=== PATIENT | female | born 1975 | race Caucasian/White ===

== ENCOUNTER 2019-04-03 18:28 | Emergency (ER) | payer OTHER ==
[~2019-04-03] VITALS: Ht 170.2 cm; Wt 93.7 kg
[2019-04-03 18:59] LABS: BASOPHILS # (AUTO) 0.05 x10^3/uL (0-0.1); BASOPHILS % (AUTO) 1 % (0-1); EOSINOPHILS % (AUTO) 1 % (1-7); LYMPHOCYTES # (AUTO) 2.31 x10^3/uL (1-3.4); LYMPHOCYTES % (AUTO) 28 % (22-44); MD NO; MEAN CORPUSCULAR HEMOGLOBIN 29.1 pg (27.0-34.8); MEAN CORPUSCULAR HGB CONC 33.8 g/dL (32.4-35.8); MEAN PLATELET VOLUME 8.1 fL (7.4-10.4); MONOCYTES # (AUTO) 0.41 x10^3/uL (0.2-0.8); MONOCYTES % (AUTO) 5 % (2-9); NEUTROPHILS # (AUTO) 5.45 x10^3/uL (1.8-6.8); NEUTROPHILS % (AUTO) 65 % (42-75); PLATELET COUNT 342 x10^3/uL (130-400); RED BLOOD COUNT 4.91 x10^6/uL (3.82-5.3); RED CELL DISTRIBUTION WIDTH 13.6 % (9.6-15.2)
[2019-04-03 19:12] LABS: ANION GAP 8 mmol/L (5-15); CHLORIDE 105 mmol/L (98-107)
[2019-04-03 19:17] LABS: CREATININE 0.97 mg/dL (0.55-1.02)
[2019-04-03] MEDS ORDERED: ONDANSETRON ODT 4 MG PO ONE (20:30)
[2019-04-03] MEDS ORDERED: ONDANSETRON ODT 4 MG ONE (20:45)
[2019-04-03 21:09] VITALS: BP 126/79
== END 2019-04-03 21:11 | disposition home or self-care (01) ==
LOC: ED 20:57
DX: R55 Syncope and collapse (principal); H53.9 Unspecified visual disturbance; R53.1 Weakness; R11.10 Vomiting, unspecified; K21.9 Gastro-esophageal reflux disease without esophagitis
CPT/HCPCS: 36415; 80048; 84703; 85025; 93005; 99284; Q0162

== ENCOUNTER 2020-08-14 09:28 | Emergency (ER) | payer OTHER ==
[~2020-08-14] VITALS: Ht 167.6 cm; Wt 94.9 kg
--- NOTE | 2020-08-14 09:47 | NUR ---
PT CHANGED INTO GOWN, MONITORS IN PLACE. CALL LIGHT WITHIN REACH. ANITAN
--- NOTE | 2020-08-14 09:51 | NUR ---
pa at bs
--- NOTE | 2020-08-14 10:12 | NUR ---
XRAY AT BS
[2020-08-14] MEDS ORDERED: NORE-86 PO (10:17)
[2020-08-14] MEDS ORDERED: VENL37.52 PO (10:17)
[2020-08-14] MEDS ORDERED: OMEP20TA62 PO (10:17)
[2020-08-14] MEDS ORDERED: BENZ100C PO (10:17)
[2020-08-14 10:44] LABS: BASOPHILS % (AUTO) 0 % (0-1); EOSINOPHILS % (AUTO) 0 % (1-7); LYMPHOCYTES % (AUTO) 12 % (22-44); MEAN CORPUSCULAR HEMOGLOBIN 29.1 pg (27.0-34.8); MEAN CORPUSCULAR HGB CONC 33.8 g/dL (32.4-35.8); MEAN PLATELET VOLUME 8.1 fL (7.4-10.4); MONOCYTES % (AUTO) 4 % (2-9); NEUTROPHILS % (AUTO) 84 % (42-75); PLATELET COUNT 269 x10^3/uL (130-400); RED BLOOD COUNT 4.46 x10^6/uL (3.82-5.3); RED CELL DISTRIBUTION WIDTH 13.4 % (9.6-15.2)
[2020-08-14 10:49] LABS: MD NO
[2020-08-14 10:53] LABS: ALANINE AMINOTRANSFERASE 18 U/L (12-78); ALBUMIN 3.5 g/dL (3.4-5.0); ANION GAP 5 mmol/L (5-15); CALCIUM 8.8 mg/dL (8.5-10.1); CHLORIDE 106 mmol/L (98-107); CREATININE 0.92 mg/dL (0.55-1.02)
[2020-08-14 10:57] LABS: ALKALINE PHOSPHATASE 62 U/L (45-117); BILIRUBIN,TOTAL 0.8 mg/dL (0.2-1.0); TOTAL PROTEIN 7.4 g/dL (6.4-8.2); TROPONIN I < 0.015 ng/mL (0.000-0.045)
--- NOTE | 2020-08-14 11:12 | NUR ---
PT LAYING ON [place]. CALL LIGHT WITHIN REACH. NO NEEDS AT THIS TIME. CHART UP FOR RECHECK
[2020-08-14 12:24] VITALS: BP 132/85
--- NOTE | 2020-08-14 12:25 | NUR ---
PA AT BS. PT LAYING ON [place]. MOTHER AT BS. CALL LIGHT WITHIN REACH. NO NEEDS AT THIS TIME
--- NOTE | 2020-08-14 12:45 | NUR ---
Patient given discharge instructions and they have confirmed that they understand the instructions. Patient ambulatory with steady gait.
== END 2020-08-14 13:00 | disposition home or self-care (01) ==
LOC: ED 10:24
DX: R07.2 Precordial pain (principal); R06.00 Dyspnea, unspecified; K21.9 Gastro-esophageal reflux disease without esophagitis
CPT/HCPCS: 36415; 71045; 80053; 84484; 84703; 85025; 85379; 93005; 99285

== ENCOUNTER 2020-09-20 12:04 | Emergency (ER) | payer OTHER ==
[~2020-09-20] VITALS: Ht 167.6 cm; Wt 91.4 kg
[~2020-09-20 12:04] MED LIST: BENZ100C PO; NORE-86 PO; OMEP20TA62 PO; VENL37.52 PO
--- NOTE | 2020-09-20 12:12 | NUR ---
PATIENT ARRIVES WITH NAUSEA THAT BEGAN YESTERDAY MORNING. NO ABDOMINAL PAIN. ONLY HAD A FEW CRACKERS IN PAST DAY.
[2020-09-20] MEDS ORDERED: SODIUM CHLORIDE 0.9% 1,000ML IVBOLUS ONE (12:30)
[2020-09-20] MEDS ORDERED: METOCLOPRAMIDE 5 MG/ML, 2ML IVPush ONE (12:30)
[2020-09-20] MEDS ORDERED: SODIUM CHLORIDE FLUSH 10ML SYR IVF ONE (12:30)
--- NOTE | 2020-09-20 12:53 | NUR ---
PATIENT URINE CLEAN CATCH SENT, BLOOD WORK WELL. PATIENT IN BED WITH DAD BEDSIDE RAILS UP ON MONITOR
[2020-09-20 12:59] LABS: ALANINE AMINOTRANSFERASE 22 U/L (12-78); ALBUMIN 3.6 g/dL (3.4-5.0); ANION GAP 9 mmol/L (5-15); BASOPHILS % (AUTO) 1 % (0-1); CALCIUM 9.4 mg/dL (8.5-10.1); CHLORIDE 106 mmol/L (98-107); CREATININE 1.02 mg/dL (0.55-1.02); EOSINOPHILS % (AUTO) 0 % (1-7); LYMPHOCYTES % (AUTO) 13 % (22-44); MEAN CORPUSCULAR HEMOGLOBIN 29.2 pg (27.0-34.8); MEAN CORPUSCULAR HGB CONC 34.3 g/dL (32.4-35.8); MEAN PLATELET VOLUME 8.5 fL (7.4-10.4); MONOCYTES % (AUTO) 3 % (2-9); NEUTROPHILS % (AUTO) 84 % (42-75); PLATELET COUNT 309 x10^3/uL (130-400); RED BLOOD COUNT 5.02 x10^6/uL (3.82-5.3); RED CELL DISTRIBUTION WIDTH 13.7 % (9.6-15.2)
[2020-09-20 13:04] LABS: ALKALINE PHOSPHATASE 71 U/L (45-117); BILIRUBIN,TOTAL 0.9 mg/dL (0.2-1.0); TOTAL PROTEIN 8.4 g/dL (6.4-8.2)
[2020-09-20] MEDS ORDERED: METOCLOPRAMIDE 5 MG/ML, 2ML ONE (13:13)
[2020-09-20 13:26] LABS: MICROSCOPIC INDICATED
[2020-09-20 14:26] VITALS: BP 122/78
== END 2020-09-20 14:35 | disposition home or self-care (01) ==
LOC: ED 12:46
DX: R11.2 Nausea with vomiting, unspecified (principal); R07.89 Other chest pain; R06.02 Shortness of breath; R94.31 Abnormal electrocardiogram [ECG] [EKG]; K21.9 Gastro-esophageal reflux disease without esophagitis
CPT/HCPCS: 36415; 80053; 81001; 83690; 84703; 85025; 87086; 93005; 96361; 96374; 99284; J2765; J7030

== ENCOUNTER → 2020-10-25 | Outpatient (CLI) | payer OTHER | END | disposition home or self-care (01) | LOC: CFH 10:18 | PROVIDERS: ATTEND Registered Nurse | DX: R05 Cough (principal); R03.0 Elevated blood-pressure reading, without diagnosis of hypertension; Z86.16 Personal history of COVID-19 | CPT/HCPCS: 71250 ==